=== PATIENT | male | born 1960 | race Caucasian/White ===

== ENCOUNTER 2018-03-10 09:36 | Day surgery (SDC) | payer BC ==
[2018-03-07 10:51] VITALS: BMI 25.0
[~2018-03-10 09:36] MED LIST: LACTATED RINGERS 1,000 ML IV SCH
[2018-03-10 10:08] VITALS: TEMP 96.9
[2018-03-10] MEDS ORDERED: PROPOFOL 10 MG/ML 20 ML VIAL IV ONE (10:31)
[2018-03-10] MEDS ORDERED: LIDOCAINE 1% INJ 10MG/ML (20 ML MDV) ONE (10:31)
--- NOTE | 2018-03-10 10:42 | P.GSHP ---
History of Present Illness H&P Date: 03/10/18 Chief Complaint: Colon cancer screening Patient today for colonoscopy. Last colonoscopy 6-7 years ago. He believes he had polyps at that time. No family history of colon cancer. No bowel complaints. Past Medical History Past Medical History: Eye Disorder Additional Past Medical History / Comment(s): Bilateral glaucoma. Hx broken, wrist and fingers. History of Any Multi-Drug Resistant Organisms: None Reported Additional Past Surgical History / Comment(s): Colonoscopy, bilateral cataract surgery. Past Anesthesia/Blood Transfusion Reactions: No Reported Reaction Past Psychological History: No Psychological Hx Reported Smoking Status: Current every day smoker Past Alcohol Use History: Occasional Additional Past Alcohol Use History / Comment(s): Has been smoking on and off for 30 yrs, currently 1-2 cigarettes per day. Past Drug Use History: None Reported - Past Family History Mother Family Medical History: No Reported History Medications and Allergies Home Medications Medication Instructions Recorded Confirmed Type Timolol Maleate [Timolol Maleate 1 applic BOTH EYES DAILY 03/07/18 03/10/18 History 0.5% Ophth Gel] Allergies Allergy/AdvReac Type Severity Reaction Status Date / Time No Known Allergies Allergy Verified 03/10/18 10:05 Surgical - Exam Vital Signs Temp Pulse Resp BP Pulse Ox 96.9 F L 63 16 122/67 98 03/10/18 10:06 03/10/18 10:06 03/10/18 10:06 03/10/18 10:06 03/10/18 10:06 Physical exam: General: Well-developed, well-nourished HEENT: Normocephalic, sclerae nonicteric Abdomen: Nontender, nondistended Extremities: No edema Neuro: Alert and oriented Assessment and Plan (1) Colon cancer screening Narrative/Plan: Will proceed with colonoscopy at this time. Current Visit: Yes Status: Acute Code(s): Z12.11 - ENCOUNTER FOR SCREENING FOR MALIGNANT NEOPLASM OF COLON SNOMED Code(s): 066496707
--- NOTE | 2018-03-10 10:57 | P.OP ---
Date of Procedure: 03/10/18 Procedure(s) Performed: PREOPERATIVE DIAGNOSIS: Colon cancer screening POSTOPERATIVE DIAGNOSIS: Cecal polyp, diverticulosis PROCEDURE: Colonoscopy snare polypectomy ANESTHESIA: MAC SURGEON: Bo Motley M.D. SPECIMENS: Cecal polyp ENDOSCOPIC PROCEDURE: The patient was placed on the endoscopy table in the left decubitus position. The Olympus colonoscope was inserted into the anus and passed under direct visualization to the base of the cecum. The appendiceal orifice was visualized. There is a very small polyp in the base of the cecum. This was removed using the snare with cautery technique. The remainder of the ascending transverse, descending, sigmoid and rectum appeared normal. There was mild diverticulosis noted in the sigmoid colon. Digital rectal examination was normal. The patient was taken to the recovery room in stable condition per anesthesia guidelines. RECOMMENDATIONS: Await Biopsy results. Anticipate follow-up colonoscopy 5 years
[2018-03-10 11:22] VITALS: RESP 16
[2018-03-10 11:38] VITALS: BP 106/67; PULSE 52
== END 2018-03-10 11:50 | disposition home or self-care (01) ==
LOC: ORWHC2ENDO 09:36
PROVIDERS: ATTEND Surgery
DX: Z12.11 Encounter for screening for malignant neoplasm of colon (principal); D12.0 Benign neoplasm of cecum; H40.9 Unspecified glaucoma; K57.30 Diverticulosis of large intestine without perforation or abscess without bleeding; F17.210 Nicotine dependence, cigarettes, uncomplicated; Z79.899 Other long term (current) drug therapy
CPT/HCPCS: 45385; 88305; J2001; J2704

== ENCOUNTER 2021-08-07 12:15 | Observation (INO) | payer BC ==
[2021-08-07] MEDS ORDERED: HYDROmorphone 0.5 MG/0.5 ML SYRINGE IVP STA (12:17)
[2021-08-07 12:29] LABS: Basophils # (A) 0.1 k/uL (0-0.2); Basophils % (A) 1 %; Eosinophils # (A) 0.3 k/uL (0-0.7); Eosinophils % (A) 4 %; HCT 47.7 % (39.0-53.0); HGB 15.8 gm/dL (13.0-17.5); Lymphocytes # (A) 2.3 k/uL (1.0-4.8); Lymphocytes % (A) 25 %; MCH 31.5 pg (25.0-35.0); MCHC 33.2 g/dL (31.0-37.0); MCV 94.7 fL (80.0-100.0); Mean Platelet Volume 7.4; Monocytes # (A) 0.5 k/uL (0-1.0); Monocytes % (A) 6 %; Neutrophils # (A) 5.7 k/uL (1.3-7.7); Neutrophils % (A) 63 %; Platelet Count 304 k/uL (150-450); RBC 5.04 m/uL (4.30-5.90); RDW 12.1 % (11.5-15.5)
--- NOTE | 2021-08-07 12:29 | ED ---
General Adult HPI - General Stated complaint: fall Time Seen by Provider: 08/07/21 12:17 Source: patient, EMS, RN notes reviewed, old records reviewed - History of Present Illness Initial comments: 61-year-old male presenting status post fall. 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 He states that he had burning and landed on his feet. He is complaining of pain predominantly in his right foot and ankle but does have pain in both knees and both ankles. He denies hip pain. He denies abdominal pain. Denies chest pain. No head or neck trauma. He was placed in c-collar and transported by paramedics. No daily medications, no anticoagulation. - Related Data Home Medications Medication Instructions Recorded Confirmed Ascorbic Acid [Vitamin C] 1,000 mg PO DAILY 08/07/21 08/07/21 Aspirin EC [Ecotrin Low Dose] 81 mg PO DAILY 08/07/21 08/07/21 Cholecalciferol [Vitamin D3 (25 50 mcg PO DAILY 08/07/21 08/07/21 Mcg = 1000 Iu)] Dorzolamide-Timol 2.23%/0.68% 1 drop BOTH EYES BID 08/07/21 08/07/21 [Cosopt] Latanoprost/Pf [Latanoprost 0.005% 1 drop BOTH EYES HS 08/07/21 08/07/21 Eye Drop] [place]-3 Fatty Acids/Fish Oil [Fish 1 cap PO DAILY 08/07/21 08/07/21 Oil 1,000 mg Softgel] Zinc 50 mg PO DAILY 08/07/21 08/07/21 Allergies Allergy/AdvReac Type Severity Reaction Status Date / Time No Known Allergies Allergy Verified 08/07/21 14:20 Review of Systems ROS Statement: Those systems with pertinent positive or pertinent negative responses have been documented in the HPI. ROS Other: All systems not noted in ROS Statement are negative. Past Medical History Past Medical History: Eye Disorder Additional Past Medical History / Comment(s): Bilateral glaucoma. Hx broken, wrist and fingers. History of Any Multi-Drug Resistant Organisms: None Reported Additional Past Surgical History / Comment(s): Colonoscopy, bilateral cataract surgery. Past Anesthesia/Blood Transfusion Reactions: No Reported Reaction Past Psychological History: No Psychological Hx Reported Past Alcohol Use History: Occasional Additional Past Alcohol Use History / Comment(s): Has been smoking on and off for 30 yrs, currently 1-2 cigarettes per day. Past Drug Use History: None Reported - Past Family History Mother Family Medical History: No Reported History General Exam General appearance: alert, in no apparent distress Head exam: Present: atraumatic, normocephalic Eye exam: Present: normal appearance, PERRL ENT exam: Present: normal exam Neck exam: Present: normal inspection. Absent: tenderness, meningismus Respiratory exam: Present: normal lung sounds bilaterally. Absent: respiratory distress, wheezes Cardiovascular Exam: Present: regular rate, normal rhythm GI/Abdominal exam: Present: soft. Absent: distended, tenderness, guarding, rebound Extremities exam: Present: tenderness, joint swelling, other (Deformity and ecchymosis, soft tissue swelling to the right foot and ankle. Pulses are palpable but diminished.). Absent: full ROM Back exam: Present: normal inspection, full ROM. Absent: tenderness, CVA tenderness (R), paraspinal tenderness, vertebral tenderness Neurological exam: Present: alert, oriented X3, CN II-XII intact. Absent: motor sensory deficit Psychiatric exam: Present: normal affect, normal mood Skin exam: Present: warm, dry, intact. Absent: cyanosis, diaphoretic Course Vital Signs 08/07/21 12:15 Temperature 97.6 F Pulse Rate 77 Respiratory 16 Rate Blood Pressure 130/86 O2 Sat by Pulse 98 Oximetry - Reevaluation(s) Reevaluation #1: 08/07/21 12:[address] Silver regarding level II trauma activation. Reevaluation #2: 08/07/21 [address] Oshea covering for orthopedics. Reevaluation #3: 08/07/21 15:[address] Silver, he will admit with both orthopedics and internal medicine on consult. EKG Findings - EKG Comments: EKG Findings:: EKG: Normal sinus rhythm rate of 67, MN interval 176, QRS du ration 88, QTC [address] segment elevation. Medical Decision Making - Medical Decision Making 61-year-old male status post fall from greater than 20 feet. High mechanism trauma. Patient's chief complaint is extremity pain. He is evaluated as an activated level II trauma. CT imaging is performed after initial x-rays of the chest and pelvis which are negative for traumatic injury. CT imaging negative for intracranial hemorrhage or mass effect, negative for cervical fracture or subluxation. Chest abdomen pelvis CT is negative for traumatic injury. X-rays do reveal both ankle and foot fractures. CT is ordered and this does show multiple foot fractures and trimalleolar fracture of the right ankle. Patient will be admitted for observation after this significant trauma. Orthopedics will be on consult for his orthopedic injuries. Internal medicine for medical management. - Lab Data Result diagrams: 08/07/21 12:16 08/07/21 12:16 Lab Results 08/07/21 08/07/21 08/07/21 Range/Units 12:16 12:16 12:16 WBC 9.0 (3.8-10.6) k/uL RBC 5.04 (4.30-5.90) m/uL Hgb 15.8 (13.0-17.5) gm/dL Hct 47.7 (39.0-53.0) % MCV 94.7 (80.0-100.0) fL MCH 31.5 (25.0-35.0) pg MCHC 33.2 (31.0-37.0) g/dL RDW 12.1 (11.5-15.5) % Plt Count 304 (150-450) k/uL MPV 7.4 Neutrophils % 63 % Lymphocytes % 25 % Monocytes % 6 % Eosinophils % 4 % Basophils % 1 % Neutrophils # 5.7 (1.3-7.7) k/uL Lymphocytes # 2.3 (1.0-4.8) k/uL Monocytes # 0.5 (0-1.0) k/uL Eosinophils # 0.3 (0-0.7) k/uL Basophils # 0.1 (0-0.2) k/uL PT 10.4 (9.0-12.0) sec INR 1.0 (<1.2) APTT 20.8 L (22.0-30.0) sec Sodium 140 (137-145) mmol/L Potassium 4.5 (3.5-5.1) mmol/L Chloride 107 (98-107) mmol/L Carbon Dioxide 23 (22-30) mmol/L Anion Gap 10 mmol/L BUN 18 (9-20) mg/dL Creatinine 0.98 (0.66-1.25) mg/dL Est GFR (CKD-EPI)AfAm >90 (>60 ml/min/1.73 sqM) Est GFR (CKD-EPI)NonAf 83 (>60 ml/min/1.73 sqM) Glucose 102 H (74-99) mg/dL Calcium 9.1 (8.4-10.2) mg/dL Total Bilirubin 1.3 (0.2-1.3) mg/dL AST 22 (17-59) U/L ALT 14 (4-49) U/L Alkaline Phosphatase 66 (38-126) U/L Troponin I (0.000-0.034) ng/mL Total Protein 7.1 (6.3-8.2) g/dL Albumin 4.0 (3.5-5.0) g/dL Serum Alcohol <10 mg/dL Blood Type Blood Type Confirm Blood Type Recheck Bld Type Recheck Status Antibody Screen Spec Expiration Date 08/07/21 08/07/21 08/07/21 Range/Units 12:16 12:16 13:04 WBC (3.8-10.6) k/uL RBC (4.30-5.90) m/uL Hgb (13.0-17.5) gm/dL Hct (39.0-53.0) % MCV (80.0-100.0) fL MCH (25.0-35.0) pg MCHC (31.0-37.0) g/dL RDW (11.5-15.5) % Plt Count (150-450) k/uL MPV Neutrophils % % Lymphocytes % % Monocytes % % Eosinophils % % Basophils % % Neutrophils # (1.3-7.7) k/uL Lymphocytes # (1.0-4.8) k/uL Monocytes # (0-1.0) k/uL Eosinophils # (0-0.7) k/uL Basophils # (0-0.2) k/uL PT (9.0-12.0) sec INR (<1.2) APTT (22.0-30.0) sec Sodium (137-145) mmol/L Potassium (3.5-5.1) mmol/L Chloride (98-107) mmol/L Carbon Dioxide (22-30) mmol/L Anion Gap mmol/L BUN (9-20) mg/dL Creatinine (0.66-1.25) mg/dL Est GFR (CKD-EPI)AfAm (>60 ml/min/1.73 sqM) Est GFR (CKD-EPI)NonAf (>60 ml/min/1.73 sqM) Glucose (74-99) mg/dL Calcium (8.4-10.2) mg/dL Total Bilirubin (0.2-1.3) mg/dL AST (17-59) U/L ALT (4-49) U/L Alkaline Phosphatase (38-126) U/L Troponin I <0.012 (0.000-0.034) ng/mL Total Protein (6.3-8.2) g/dL Albumin (3.5-5.0) g/dL Serum Alcohol mg/dL Blood Type A Negative Blood Type Confirm A Negative Blood Type Recheck No Previous Record Bld Type Recheck Status CABO Indicated Antibody Screen NEGATIVE Spec Expiration Date 08/10/2021 - 2315 Disposition Clinical Impression: Fall, Trimalleolar fracture of ankle, closed, Lisfranc fracture, Metatarsal fracture Disposition: ADMITTED IP TO THIS [facility] Condition: Stable Is patient prescribed a controlled substance at d/c from ED?: No Referrals: None,Stated [REFERRING] - 1-2 days Decision to Admit Reason: Admit from EC Decision Date: 08/07/21 Decision Time: 15:27
--- NOTE | 2021-08-07 12:35 | XR ---
EXAMINATION TYPE: XR chest 1V portable DATE OF EXAM: 08/07/2021 Comparison: 03/05/2014 Clinical History: 61-year-old male trauma, fall from roof today, pain Findings: Heart and lungs are normal in size. Some interstitial prominence upper and mid lungs without consolid ation, pneumothorax, or pleural effusion seen. Impression: Some interstitial prominence in the upper and mid lungs may be technical. No pneumothorax or pleural effusion. The interstitium can be further assessed on the patient's scheduled CT.
--- NOTE | 2021-08-07 12:38 | XR ---
EXAMINATION TYPE: XR pelvis AP view DATE OF EXAM: 08/07/2021 COMPARISON: NONE HISTORY: 61 year-old male trauma, pain after fall from roof today FINDINGS: Hips appear symmetric and intact. External rotation of the right hip limiting assessment of the right femoral neck. No displaced fracture is seen. SI joints appear symmetric and intact as does the pubic symphysis. IMPRESSION: Limited assessment of the right femoral neck due to patient positioning. No displaced fracture seen.
[2021-08-07 12:41] LABS: ALT 14 U/L (4-49); AST 22 U/L (17-59); African American GFR (CKD) >90 (>60 ml/min/1.73 sqM); Alcohol <10 mg/dL; Alkaline Phosphatase 66 U/L (38-126); Anion Gap 10 mmol/L; Blood Urea Nitrogen 18 mg/dL (9-20); Calcium 9.1 mg/dL (8.4-10.2); Carbon Dioxide 23 mmol/L (22-30); Chloride 107 mmol/L (98-107); Glucose 102 mg/dL (74-99); Non-African American GFR(CKD) 83 (>60 ml/min/1.73 sqM); Potassium 4.5 mmol/L (3.5-5.1); Sodium 140 mmol/L (137-145); Total Bilirubin 1.3 mg/dL (0.2-1.3); Total Protein 7.1 g/dL (6.3-8.2)
[2021-08-07 12:56] LABS: Prothrombin Time 10.4 sec (9.0-12.0)
--- NOTE | 2021-08-07 13:11 | CT ---
EXAMINATION TYPE: CT brain corrina allen DATE OF EXAM: 08/07/2021 COMPARISON: None HISTORY: Fall, Trauma CT DLP: 1668.[address] of the brain was performed. The ventricles, basal cisterns and sulci overlying the cerebral convexities demonstrate mild enlargem ent. There is no evidence for intracranial hemorrhage or sulcal effacement. There is decreased attenuatio n about the periventricular white matter and deep white matter of both cerebral hemispheres, compatib le with chronic small vessel ischemia. No mass effects are seen. If symptoms persist consider MRI. Osseous calvarium is intact. IMPRESSION: 1. Age related atrophic and chronic small vessel ischemic change without acute intracranial process seen at this time. CT Cervical Spine: Unenhanced CT of the cervical spine was performed with bone and soft tissue window settings submitted . Coronal and sagittal reconstruction is obtained. There is normal alignment and prevertebral soft tissues. No evidence for acute cervical fracture . Scattered degenerative disc disease and spondylosis. Biapical scarring. Incidental note is made of T1 hemangioma. IMPRESSION: 1. No evidence for acute fracture or subluxation of the cervical spine.
--- NOTE | 2021-08-07 13:16 | CT ---
EXAMINATION TYPE: CT ChestAbdPelvis w con DATE OF EXAM: 08/07/2021 COMPARISON: none HISTORY: Fall, Trauma CT DLP: 1155.2 mGycm CONTRAST: Contrast enhanced Trauma CT of the Chest, Abdomen and Pelvis is performed with IV Contrast, patient i njected with 100 mL of Isovue 300. Chest: LUNGS: There is no evidence for pneumothorax. The lungs are clear and free of focal contusion or ate lectasis. No pleural effusion MEDIASTINUM: Thoracic aorta is of normal caliber without CT evidence to suggest traumatic induced ao rtic injury. No mediastinal fluid or blood. No pericardial fluid or cardia abnormality. HILAR STRUCTURES: No evidence for mass. No hilar adenopathy is appreciated. OTHER: No significant abnormality. OSSEOUS: No displaced osseous fractures identified. CT ABDOMEN AND PELVIS FINDINGS: LIVER/GB: No focal laceration, contusion or subcapsular hemorrhage. No calcified gallstones. No s pace occupying hepatic lesion. Biliary tree is of normal caliber. PANCREAS: No evidence for transection. No inflammation. No distinct mass. SPLEEN: No focal laceration, contusion or subcapsular hemorrhage. ADRENALS: No hemorrhage. No nodule. No thickening. KIDNEYS/BLADDER: No focal laceration, contusion or subcapsular hemorrhage. No hydronephrosis. No n ephrolithiasis. No distinct renal mass. BOWEL: Bowel is intact. No evidence for pneumoperitoneum. GENITAL ORGANS: No gross abnormality. LYMPH NODES: No greater than 1cm abdominal or pelvic lymph nodes are appreciated. AORTA: No traumatic aortic injury visualized. OSSEOUS STRUCTURES: No displaced fracture seen. OTHER: No evidence for hemoperitoneum. IMPRESSION: 1. No evidence for traumatic injury to the chest. 2. No evidence for traumatic injury to the abdomen or pelvis.
[2021-08-07 13:18] LABS: Partial Thromboplastin Time 20.8 sec (22.0-30.0)
--- NOTE | 2021-08-07 13:39 | XR ---
EXAMINATION TYPE: XR knee complete bilateral DATE OF EXAM: 08/07/2021 COMPARISON: NONE HISTORY: Pain TECHNIQUE: Three views of each knee are submitted. FINDINGS: Mild hypertrophic change of the patellofemoral joint.. Osseous structures are intact. No acute frac ture seen. IMPRESSION: 1. No acute fracture or dislocation.
--- NOTE | 2021-08-07 13:42 | XR ---
EXAMINATION TYPE: XR foot complete RT DATE OF EXAM: 08/07/2021 COMPARISON: NONE HISTORY: Pain TECHNIQUE: Three views are submitted. FINDINGS: There is be fractures involving the distal tibia and fibula with displacement. There also appears to be widening of the first and tarsal metatarsal junction. Deformity at the base of the second metatars al could not exclude fracture recommend follow-up CT scan. There is arthropathy of the first MTP and a fracture appearing involving the head and fifth metatarsal. IMPRESSION: 1. No fractures involving the head of the fifth metatarsal, distal tibia and fibula with displacement . 2. There is widening of the first tarsal metatarsal junction and the distance between the first and s econd metatarsals. Slight osseous irregularity at the level of the base of the second metatarsal. Rec ommend CT of the foot to assess for Lisfranc fracture dislocation.
--- NOTE | 2021-08-07 13:48 | XR ---
EXAMINATION TYPE: XR ankle complete bilateral DATE OF EXAM: 08/07/2021 COMPARISON: NONE HISTORY: Pain FINDINGS: Three views of the bilateral ankle are obtained. Left ankle: Ankle mortise is preserved. Visualized osseous structures are grossly intact. With no acu te fracture. Right ankle: There is soft tissue edema displaced fractures involving the medial and lateral malleolu s. Slight medial subluxation the tibia relative to the talus not excluded. Posterior margin of the ti diamond grossly intact. IMPRESSION: 1. Acute displaced fractures right medial and lateral malleolus.
--- NOTE | 2021-08-07 14:50 | CT ---
EXAMINATION TYPE: CT lower extremity RT wo con DATE OF EXAM: 08/07/2021 COMPARISON: None HISTORY: Fall. Right ankle/foot pain. CT DLP: 394.7 mGycm Automated exposure control for dose reduction was used. Unenhanced CT of the right ankle and foot was performed with bone and soft tissue window settings submitted. FINDINGS: There is mildly comminuted fracture involving the medial malleolus at the level of the ankle mortise. Displacement is identified measuring 8 mm. There is also fracture involving the medial malleolus wit h displacement of 3.2 mm. Posterior malleolar fracture noted displacement of 3.8 mm. Ankle mortise i s intact. Soft tissue swelling noted. There is displaced fracture involving the tarsal cuboid measuring 3.9 mm displacement. There is fract ure involving the head/neck of the fifth metatarsal with minimal displacement noted. There is chip fr acture involving the third cuneiform the metatarsal joint tiny chip fracture involving the lateral as pect of the base of the second metatarsal. Comminuted and Displaced fracture base of the second metat arsal. Widening of the first and second metatarsal interspace measuring 6.6 mm. Findings are compatib le with Lisfranc fracture dislocation. IMPRESSION: 1. Trimalleolar fracture about the ankle. 2. Lisfranc fracture dislocation at the first and second metatarsal interspace. Comminuted fracture a t the base of the second metatarsal. 3. Cuboid fracture. 4. Fracture of the fifth metatarsal head/neck.
[2021-08-07] MEDS ORDERED: KETOROLAC 15 MG/ML 1 ML VIAL IVP STA (14:57)
[2021-08-07] MEDS ORDERED: NALOXONE 0.4 MG/ML 1 ML VIAL IV PRN (15:22)
[2021-08-07] MEDS ORDERED: ACETAMINOPHEN TAB 325 MG TAB PO PRN (15:22)
[2021-08-07] MEDS ORDERED: ONDANSETRON 4 MG/2 ML VIAL IVP PRN (15:22)
[2021-08-07] MEDS: HYDROmorphone 1 MG/ML 1 ML SYRINGE IVP PRN ×2 (16:59→20:43)
[2021-08-07] MEDS: KETOROLAC 30 MG/ML 1 ML VIAL IVP PRN ×2 (17:58→23:36)
[2021-08-07] MEDS: HYDROmorphone 0.5 MG/0.5 ML SYRINGE IVP PRN ×2 (18:00→23:39)
[2021-08-08] MEDS: HYDROmorphone 1 MG/ML 1 ML SYRINGE IVP PRN ×2 (02:02→08:38)
--- NOTE | 2021-08-08 09:03 | P.CNOR ---
History of Present Illness - [facility] Consult date: 08/08/21 History of present illness: The patient is a very pleasant 61-year-old male who is relatively healthy other than smoking 1-2 cigarettes a day who sustained a high level fall off a roof yesterday. 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 He lost his balance and fell almost 20 feet. He describes landing in a crouched position. He had immediate pain in his right ankle and foot and was unable to walk. He came to the emergency department where x-rays showed a right trimalleolar ankle fracture, a displaced right Lisfranc variant injury and a right cuboid fracture. Due to the mechanism of injury he was admitted overnight for observation. Orthopedics was consulted. This morning his complaining of isolated pain in his right foot and ankle. Overall he is comfortable. Past Medical History Past Medical History: Eye Disorder Additional Past Medical History / Comment(s): Bilateral glaucoma. Hx broken, wrist and fingers. History of Any Multi-Drug Resistant Organisms: None Reported Additional Past Surgical History / Comment(s): Colonoscopy, bilateral cataract surgery. Past Anesthesia/Blood Transfusion Reactions: No Reported Reaction Past Psychological History: No Psychological Hx Reported Smoking Status: Current some day smoker Past Alcohol Use History: Occasional Additional Past Alcohol Use History / Comment(s): Has been smoking on and off for 30 yrs, currently 1-2 cigarettes per day. Past Drug Use History: None Reported - Past Family History Mother Family Medical History: No Reported History Medications and Allergies Home Medications Medication Instructions Recorded Confirmed Type Ascorbic Acid [Vitamin C] 1,000 mg PO DAILY 08/07/21 08/07/21 History Aspirin EC [Ecotrin Low Dose] 81 mg PO DAILY 08/07/21 08/07/21 History Cholecalciferol [Vitamin D3 (25 50 mcg PO DAILY 08/07/21 08/07/21 History Mcg = 1000 Iu)] Dorzolamide-Timol 2.23%/0.68% 1 drop BOTH EYES BID 08/07/21 08/07/21 History [Cosopt] Latanoprost/Pf [Latanoprost 0.005% 1 drop BOTH EYES HS 08/07/21 08/07/21 History Eye Drop] [place]-3 Fatty Acids/Fish Oil [Fish 1 cap PO DAILY 08/07/21 08/07/21 History Oil 1,000 mg Softgel] Zinc 50 mg PO DAILY 08/07/21 08/07/21 History Allergies Allergy/AdvReac Type Severity Reaction Status Date / Time No Known Allergies Allergy Verified 08/07/21 14:20 Physical Examination The patient is sitting up at bedside eating breakfast. He appears comfortable. He is alert and oriented. His head is normocephalic and atraumatic. His cervical spine is nontender. He demonstrates nonlabored breathing with symmetric chest expansion. His abdomen is nonobese. He is nontender throughout the upper extremities and has no obvious deformities. The left leg is completely nontender without deformity. Right lower extremity: The focused examination of the right lower extremity was conducted. On inspection there is a intact short leg splint over the ankle. There is no tenderness over the hip or knee. The tips of the toes are diffusely swollen there is ecchymosis visualized under the splint. There is no pain with passive range of motion of the toes. The patient is able to actively plantarflex and dorsiflex his toes. The tips of the toes are warm and well- perfused brisk capillary refill. Sensation is intact to light touch throughout his toes. Results X-rays and computed tomography scan of the ankle show a minimally displaced trimalleolar ankle fracture. X-rays and computed tomography scan of the foot show a Lisfranc variant injury with displacement of the second metatarsal base out of the keystone and widening of the 1-2 intermetatarsal space. There is also a cuboid fracture and a fifth metatarsal neck fracture. - Labs Labs: Abnormal Lab Results - Last 24 Hours (Table) 08/07/21 08/07/21 Range/Units 12:16 12:16 APTT 20.8 L (22.0-30.0) sec Glucose 102 H (74-99) mg/dL H & H 08/07/21 Range/Units 12:16 Hgb 15.8 (13.0-17.5) gm/dL Hct 47.7 (39.0-53.0) % Coagulation 08/07/21 Range/Units 12:16 INR 1.0 (<1.2) Result Diagrams: 08/07/21 12:16 08/07/21 12:16 Assessment and Plan Assessment: 61-year-old male with a medical history significant for smoking 1-2 cigarettes a day who sustained a 20 foot fall onto his right lower extremity resulting in a closed right trimalleolar ankle fracture, multiple foot fractures, and an unstable Lisfranc injury. Plan: A long discussion with Mr. Garibay this morning about all of his injuries. We discussed that they will need operative fixation once the soft tissue swelling subside which generally takes 10-14 days. He was encouraged to elevate and ice the right leg to help with resolution of soft tissue swelling. He is to remain strictly nonweightbearing on his right leg. I encouraged crutch or knee scooter use. He will need to follow-up in my office this coming Tuesday which will be 1 week from his injury. The patient is cleared for discharge home from an orthopedic standpoint in regards to his extremity injury. I will defer overall readiness for discharge to the trauma service given his mechanism of injury. Thank you very much for the consultation.
[2021-08-08 09:07] VITALS: BP 133/70; PULSE 71; RESP 16; TEMP 99.2
[2021-08-08] MEDS: HYDROmorphone 0.5 MG/0.5 ML SYRINGE IVP PRN (11:31)
--- NOTE | 2021-08-08 19:22 | CONS ---
CONSULTATION I am covering for Dr. Degroot. REASON FOR CONSULTATION: Advice regarding glaucoma and other medical issues requested by Surgery. HISTORY OF PRESENT ILLNESS: This 61-year-old gentleman with a past history of bilateral glaucoma, history of fracture, history of colonoscopy, bilateral cataract surgery, being followed by Dr. Degroot in the outpatient apparently slipped and fell. The patient suffered a right ankle fracture and Dr. Oshea saw the patient and recommended outpatient evaluation. There is no history of any fever or rigors. No history of headache, loss of conscious. Basic labs are normal except glucose 102. COVID-19 was negative. There is no history of fever, rigors, chills at this time. No history of any unconsciousness or syncope. PAST MEDICAL HISTORY: History eye disorder, history of bilateral glaucoma, history of smoking, colonoscopy. HOME MEDICATIONS: Prior to admission noted. ALLERGIES: None. FAMILY HISTORY: No history of heart disease or strokes in the family. SOCIAL HISTORY: History of smoking occasionally. REVIEW OF SYSTEMS: ENT No history of diminished hearing or vision. CARDIOVASCULAR No angina or palpitations. RESPIRATORY No cough, no hemoptysis. GI No nausea, vomiting, or diarrhea. No dysuria or hematuria. NERVOUS No numbness or weakness. ALLERGY/IMMUNOLOGY No asthma or hayfever. MUSCULOSKELETAL As mentioned earlier. HEMATOLOGY/ONCOLOGY Negative. ENDOCRINE No history of diabetes or hypothyroidism. CONSTITUTIONAL As mentioned earlier. DERMATOLOGY Negative. RHEUMATOLOGY Negative, PSYCHIATRY As mentioned earlier. PHYSICAL EXAMINATION: Alert and oriented x3. Pulse 71, blood pressure 133/70, respirations 16, temperature 99.2, pulse ox 94% on room air. HEENT: Conjunctivae normal. Oral mucosa moist. NECK: No jugular venous distention. No lymph node enlargement. CARDIOVASCULAR: S1, S2, muffled. No S3, no S4, RESPIRATORY: Diminished breath sounds at the bases. A few scattered rhonchi. ABDOMEN: Soft, nontender. LEGS: Status post right ankle fracture. NERVOUS SYSTEM: Higher functions mentioned earlier. Moves all four limbs. No focal motor or sensory deficits. LYMPHATICS: No lymph node in neck or axilla. SKIN: No rash. JOINTS: As mentioned earlier. LABS: CBC within normal limits. APTT 20.8. Sodium 140, potassium 4.5. ASSESSMENT: 1. Fall and right ankle fracture. 2. History of bilateral glaucoma. 3. History of colonoscopy. 4. History of cataract surgery. 5. History of nicotine dependence. 6. FULL CODE. RECOMMENDATION: In this 61-year-old gentleman who presented after fracture, at this time patient is medically stable. Orthopedics is planning surgery. Will plan discharge and follow up in the outpatient setting. I would recommend continue the current medications and follow closely with Dr. Degroot. The patient was started on aspirin and recommended close followup with Dr. Degroot and as well as Dr. Oshea as recommended to follow. Thank you for letting us participate in the care of this patient. MMODL / IJN: [id number] /
--- NOTE | 2021-08-09 12:30 | P.GSHP ---
History of Present Illness H&P Date: 08/07/21 Chief Complaint: 20. Follow This is a 61-year-old male admitted through the emergency room. Patient apparently was dory when he fell off his ladder. The patient had an a pproximate 24 fall. Patient states he landed on his feet. He had complained of right foot and ankle pain. He is worked up emergency room and found have fractures of his right foot and ankle. Past Medical History Past Medical History: Eye Disorder Additional Past Medical History / Comment(s): Bilateral glaucoma. Hx broken, wrist and fingers. History of Any Multi-Drug Resistant Organisms: None Reported Additional Past Surgical History / Comment(s): Colonoscopy, bilateral cataract surgery. Past Anesthesia/Blood Transfusion Reactions: No Reported Reaction Past Psychological History: No Psychological Hx Reported Smoking Status: Current some day smoker Past Alcohol Use History: Occasional Additional Past Alcohol Use History / Comment(s): Has been smoking on and off for 30 yrs, currently 1-2 cigarettes per day. Past Drug Use History: None Reported - Past Family History Mother Family Medical History: No Reported History Medications and Allergies Home Medications Medication Instructions Recorded Confirmed Type Ascorbic Acid [Vitamin C] 1,000 mg PO DAILY 08/07/21 08/07/21 History Aspirin EC [Ecotrin Low Dose] 81 mg PO DAILY 08/07/21 08/07/21 History Cholecalciferol [Vitamin D3 (25 50 mcg PO DAILY 08/07/21 08/07/21 History Mcg = 1000 Iu)] Dorzolamide-Timol 2.23%/0.68% 1 drop BOTH EYES BID 08/07/21 08/07/21 History [Cosopt] Latanoprost/Pf [Latanoprost 0.005% 1 drop BOTH EYES HS 08/07/21 08/07/21 History Eye Drop] [place]-3 Fatty Acids/Fish Oil [Fish 1 cap PO DAILY 08/07/21 08/07/21 History Oil 1,000 mg Softgel] Zinc 50 mg PO DAILY 08/07/21 08/07/21 History Aspirin [Adult Low Dose Aspirin EC] 81 mg PO DAILY #30 tab 08/08/21 Rx Docusate [Colace] 100 mg PO BID #60 capsule 08/08/21 Rx HYDROcodone/APAP 7.5-325MG [[place] 1 - 2 each PO Q6HR PRN #42 tab 08/08/21 Rx 7.5-325] Allergies Allergy/AdvReac Type Severity Reaction Status Date / Time No Known Allergies Allergy Verified 08/07/21 14:20 Surgical - Exam Vital Signs Temp Pulse Resp BP Pulse Ox 97.6 F 77 16 130/86 98 08/07/21 12:15 08/07/21 12:15 08/07/21 12:15 08/07/21 12:15 08/07/21 12:15 - General well developed, well nourished, moderate distress - Eyes PERRL - ENT normal pinna - Neck no masses - Respiratory normal expansion - Cardiovascular Rhythm: regular - Abdomen Abdomen: soft, non tender - Integumentary no rash - Neurologic normal coordination, normal sensation - Musculoskeletal Obvious swelling of right foot and ankle Results - Labs 08/07/21 12:16 08/07/21 12:16 - Imaging Additional studies: Trimalleolar fracture of the right ankle, Lisfranc fracture of the foot, cuboid fracture, fifth metatarsal head neck fracture Computed tomography scan chest and pelvis is normal. no neck injury Assessment and Plan Assessment: 20 foot fall with multiple right foot and ankle fractures. Patient be evaluated by orthopedics.
--- NOTE | 2021-08-09 12:32 | P.PN ---
Progress Note - Text Progress Note Date: 08/09/21 Patient states he feels well other than some right ankle and foot pain. He wishes to go home today. He's been evaluated orthopedics. On exam vital signs are stable. Abdomen soft. There is no tenderness. Patient has minimal body pain. Patient will be discharged home after orthopedic evaluation. He'll follow-up with orthopedics for outpatient fixation of his fractures
--- NOTE | 2021-08-09 12:32 | P.DS ---
Providers Date of admission: 08/07/21 15:22 Expected date of discharge: 08/08/21 Attending physician: Mil Silver Consults: 08/07/21 15:23 Consult Physician Routine Consulting Provider: Armando Oshea Consult Reason/Comments: Right foot and ankle fracture Do you want consulting provider notified?: Already Contacted Consult Physician Routine Consulting Provider: Tristan Bell Consult Reason/Comments: Medical management Do you want consulting provider notified?: Yes Primary care physician: Sujit Degroot [facility] Course: This is a 61-year-old male who was admitted after atraumatic fall. Patient was worked up by orthopedic. And had multiple fractures of his right foot and ankle. Please see hospital chart for details Patient Condition at Discharge: Good Plan - Discharge Summary Discharge Rx Participant: No New Discharge Prescriptions: New Aspirin [Adult Low Dose Aspirin EC] 81 mg PO DAILY #30 tab HYDROcodone/APAP 7.5-325MG [[place] 7.5-325] 1 - 2 each PO Q6HR PRN #42 tab PRN Reason: Pain Docusate [Colace] 100 mg PO BID #60 capsule No Action Latanoprost/Pf [Latanoprost 0.005% Eye Drop] 1 drop BOTH EYES HS Dorzolamide-Timol 2.23%/0.68% [Cosopt] 1 drop BOTH EYES BID Cholecalciferol [Vitamin D3 (25 Mcg = 1000 Iu)] 50 mcg PO DAILY Aspirin EC [Ecotrin Low Dose] 81 mg PO DAILY Zinc 50 mg PO DAILY [place]-3 Fatty Acids/Fish Oil [Fish Oil 1,000 mg Softgel] 1 cap PO DAILY Ascorbic Acid [Vitamin C] 1,000 mg PO DAILY Discharge Medication List Ascorbic Acid [Vitamin C] 1,000 mg PO DAILY 08/07/21 [History] Aspirin EC [Ecotrin Low Dose] 81 mg PO DAILY 08/07/21 [History] Cholecalciferol [Vitamin D3 (25 Mcg = 1000 Iu)] 50 mcg PO DAILY 08/07/21 [History] Dorzolamide-Timol 2.23%/0.68% [Cosopt] 1 drop BOTH EYES BID 08/07/21 [History] Latanoprost/Pf [Latanoprost 0.005% Eye Drop] 1 drop BOTH EYES HS 08/07/21 [History] [place]-3 Fatty Acids/Fish Oil [Fish Oil 1,000 mg Softgel] 1 cap PO DAILY 08/07/21 [History] Zinc 50 mg PO DAILY 08/07/21 [History] Aspirin [Adult Low Dose Aspirin EC] 81 mg PO DAILY #30 tab 08/08/21 [Rx] Docusate [Colace] 100 mg PO BID #60 capsule 08/08/21 [Rx] HYDROcodone/APAP 7.5-325MG [[place] 7.5-325] 1 - 2 each PO Q6HR PRN #42 tab 08/08/21 [Rx] Follow up Appointment(s)/Referral(s): None,Stated [REFERRING] - 1-2 days Armando Oshea MD [Medical Doctor] - 08/14/21 Patient Instructions/Handouts: Ankle Fracture (DC), Foot Fracture in Adults (DC), Fall Prevention (DC) Activity/Diet/Wound Care/Special Instructions: RIGHT LE: Strict non-weight bearing. Leave splint intact. Use crutches or knee scooter to ambulate. Ice and elevate right leg to help with soft tissue swelling resolution.
== END 2021-08-08 12:36 | disposition home or self-care (01) ==
LOC: EC 12:15 → INTOOBSV 15:22 → 5NMEDONC 15:22 → OBSVTOIN 15:22 → 5NMEDONC 18:03 → 6NMEDSUR 22:10 → UNDODISOB 08-08 12:36 → UNDODISIN 08-08 12:36
PROVIDERS: ADMIT Surgery; ATTEND Surgery
DX: S92.321A Displaced fracture of second metatarsal bone, right foot, initial encounter for closed fracture (principal); S92.351A Displaced fracture of fifth metatarsal bone, right foot, initial encounter for closed fracture; S92.211A Displaced fracture of cuboid bone of right foot, initial encounter for closed fracture; S92.311A Displaced fracture of first metatarsal bone, right foot, initial encounter for closed fracture; S82.851A Displaced trimalleolar fracture of right lower leg, initial encounter for closed fracture; H40.9 Unspecified glaucoma; F17.210 Nicotine dependence, cigarettes, uncomplicated; Z20.822 Contact with and (suspected) exposure to COVID-19; W13.2XXA Fall from, out of or through roof, initial encounter; Z79.82 Long term (current) use of aspirin; Z79.899 Other long term (current) drug therapy
CPT/HCPCS: 96376 ×3; 96374; 96375; 99285; 36415; 93005; 86900; 86901; 80053; 84484; 85025; 85610; 85730; 86850; 80320; 87635; 73562; 73610; 72170; 73630; 71045; 73700; 72125; 70450; 71260; 74177; G0378 ×3; J1885 ×2; J1170 ×4; Q9967

== ENCOUNTER 2021-08-26 11:38 | Day surgery (SDC) | payer BC ==
[2021-08-20 17:02] VITALS: BMI 25.0
[2021-08-26] MEDS ORDERED: LIDOCAINE 1% (10MG/ML) FOR IV START INTRADERMA PRN (12:07)
[2021-08-26] MEDS ORDERED: LACTATED RINGERS 1,000 ML IV SCH (12:07)
[2021-08-26] MEDS ORDERED: DEXAMETHASONE SOD PHOSPHATE 4 MG/ML 1 ML VIAL IV ONE (12:07)
[2021-08-26] MEDS ORDERED: HYDROmorphone 0.5 MG/0.5 ML SYRINGE IVP PRN (12:07)
[2021-08-26] MEDS ORDERED: SCOPOLAMINE 1.5MG/72HR PATCH TRANSDERM ONE (12:07)
[2021-08-26] MEDS ORDERED: ONDANSETRON 4 MG/2 ML VIAL IVP ONE ×2 (12:07→12:40)
[2021-08-26] MEDS ORDERED: DEXAMETHASONE SOD PHOSPHATE 4 MG/ML 1 ML VIAL IVP ONE (12:40)
[2021-08-26] MEDS ORDERED: MIDAZOLAM 2 MG/2 ML VIAL IVP ONE (12:46)
[2021-08-26] MEDS ORDERED: HYDROmorphone (PF) 1 MG/ML ONE (13:35)
[2021-08-26] MEDS ORDERED: PROPOFOL 10 MG/ML 20 ML VIAL IV ONE (13:35)
[2021-08-26] MEDS ORDERED: fentaNYL (PF) 50 MCG/ML 2 ML AMP ONE (13:35)
[2021-08-26] MEDS ORDERED: MIDAZOLAM 2 MG/2 ML VIAL ONE (13:35)
[2021-08-26] MEDS ORDERED: ROPIVACAINE 5 MG/ML 30 ML VIAL ONE (13:35)
[2021-08-26] MEDS ORDERED: PHENYLEPHRINE-0.9% NACL SYG 1,000 MCG/10 ML SYRINGE ONE (13:35)
[2021-08-26] MEDS ORDERED: DEXAMETHASONE SOD PHOSPHATE 4 MG/ML 1 ML VIAL ONE (13:35)
[2021-08-26] MEDS ORDERED: SUCCINYLCHOLINE CHLORIDE 100 MG/5 ML SYR IV ONE (13:35)
[2021-08-26] MEDS ORDERED: LIDOCAINE 1% INJ 10MG/ML (20 ML MDV) ONE (13:35)
--- NOTE | 2021-08-26 14:40 | P.ANPRN ---
Procedure Note - Anesthesia - Nerve Block Performed Right Adductor Canal Single Time Out Performed: Yes Date of Procedure: 08/26/21 Procedure Start Time: 12:45 Procedure Stop Time: 12:55 Location of Patient: PreOp Indication: Acute Post-Operative Pain, Requested by Surgeon Sedation Type: Sedate with meaningful contact maintained Preparation: Sterile Prep, Sterile Dressing Position: Supine Catheter: None Needle Types: Facet Needle Gauge: 20 Ultrasound used to visualize needle placement: Yes Ultrasound used to observe medication spread: Yes Injectate: 0.5% Ropivacaine (see comment for volume) (18 ml + decadron 4 mg) Blood Aspirated: No Pain Paresthesia on Injection Noted: No Resistance on Injection: Normal Image Stored and Saved: Yes Events: Uneventful and Well Tolerated Right Popliteal Single Date of Procedure: 08/26/21 Procedure Start Time: 12:55 Procedure Stop Time: 13:05 Location of Patient: PreOp Indication: Acute Post-Operative Pain, Requested by Surgeon Sedation Type: Sedate with meaningful contact maintained Preparation: Sterile Prep, Sterile Dressing Position: Left Lateral Catheter: None Needle Types: Facet Needle Gauge: 20 Ultrasound used to visualize needle placement: Yes Ultrasound used to observe medication spread: Yes Injectate: 0.5% Ropivacaine (see comment for volume) (18 ml + decadron 4 mg) Blood Aspirated: No Pain Paresthesia on Injection Noted: No Resistance on Injection: Normal Image Stored and Saved: Yes Events: Uneventful and Well Tolerated
[2021-08-26] MEDS ORDERED: LACTATED RINGERS 1,000 ML IV ONE (14:54)
[2021-08-26 16:19] VITALS: TEMP 97.2
--- NOTE | 2021-08-26 16:28 | P.OP ---
Date of Procedure: 08/26/21 Preoperative Diagnosis: 1. Displaced trimalleolar fracture right ankle 2. Tarsometatarsal joint dislocation right foot Postoperative Diagnosis: 1. Same 2. Same Procedure(s) Performed: 1. Open reduction with internal fixation trimalleolar fracture right ankle 2. Open reduction with internal fixation right tarsometatarsal joint dislocation Implants: Arthrex precontoured lateral malleolar plate with associated screws, 4.0 c annulated screws, 4.0 headless fully threaded cannulated screw, Lisfranc reduction plate with screws Anesthesia: TAINA Surgeon: Boyd Hutchison Estimated Blood Loss (ml): 20 Pathology: none sent Condition: stable Disposition: PACU Description of Procedure: Prior to the patient being brought to the operative room anesthesia administered a nerve block on the right lower extremity using ultrasonic guidance and having the patient under mild sedation. The consent was checked for the correct procedure and correct laterality. Patient received 2 g of Kefzol through IV preoperatively. Then the patient was taken to the operating room and placed on table in the supine position. Timeout was again done to confirm correct patient identifiers, correct site of surgery, and correct procedures. When all staff in the room in agreement the patient was induced, intubated and placed under general anesthesia. A well-padded tourniquet was placed on the right thigh and a bump underneath the right hip to internally rotate the right leg. The right leg was then prepped and draped in usual manner. The leg was exsanguinated with an Esmarch bandage, the knee slightly flexed and the tourniquet inflated to 250 mmHg Attention was first directed over the lateral malleolus where an incision was made along the midline. It was deepened directly down through the saphenous layer to the bone. The periosteum as well as the rest of the soft tissue was reflected and one flap off the lateral malleolus. Osteotomes were used to distract the fracture and all the interposing soft tissue and hematoma were removed. The bone was lightly debrided with a curette to freshen the bone ends for improved healing. Bone reduction forceps were used to rotate the fracture into appropriate position and out to proper length. With the bone clamp held in place fluoroscopy was used to check the overall alignment on AP oblique and lateral views. Once alignment was appropriate a compression screw was placed from anterior to posterior perpendicular to the fracture site to provide interfragmentary compression. Fluoroscopy again confirmed proper position of the screw both the AP and lateral views. Then an Arthrex precontoured lateral malleolar fracture plate was positioned over the lateral malleolus. Fluoroscopy was used to adjust position. Once position was acceptable it was temporarily fixated. 35 nonlocking screw was placed through one of the proximal holes to bring the plate better contact with the fibula. Then (2) 3.5 mm locking screws were placed through the proximal portion of the plate on either side of the cortical screw. Distally 3.0 cancellous screws were placed through the plate. All holes were drilled under direct fluoroscopic visualization so that the lateral gutter was not penetrated. Once all screws were placed fluoroscopy was used to check position and make sure none into the joint. Final fluoroscopic imaging the fracture showed anatomic reduction of the lateral malleolar fracture with proper placement of all hardware. The wound is thoroughly irrigated with antibiotic saline. Deep closure done with 0 Vicryl. Skin closure done with stainless mary. Then attention was directed to the medial aspect of the ankle. Fluoroscopy was used to make landmarks on the medial side of the ankle for entry points for the percutaneous screws. Bone reduction clamp was used to clamp the medial malleolar fracture into anatomic reduction. Fluoroscopy confirmed the proper positioning. Guidewires for 4.0 cannulated screws were placed at the tip of the medial malleolus and then angled across the fracture an d into the tibia. Fluoroscopy was used to make sure that the wires were in appropriate position both on AP and lateral views and that both wires avoid of the joint. Once the wires were properly positioned on the drilling was completed and then 4.0 partially-threaded cancellous screws were inserted across the guidewires and there were tightened until the heads engaged the medial malleolus and compressed the fracture. Fluoroscopic imaging confirmed proper placement screws both on AP and lateral views and I the screw and to the joint. The guidewires were then removed and mary were used to close the 2 small incisions for the placement of the screws. Then a guidewire was placed in the posterior lateral aspect of the ankle in the Achilles tendon and the peroneal tendons. This wire was then manipulated until the wire was in alignment with the posterior malleolar fracture fragment. Proper position of the wire through the fragment was confirmed both on AP and lateral views. Small stab incision was made around the entry point of the wire and then blunt dissection taken along the wire to protect any underlying soft tissue structures to the posterior aspect of the tibia. The drilling was then performed and then a 4.0 fully threaded headless screw was inserted across the guidewire and was advanced until the most proximal threads engaged the fracture fragment and compression of the screw was palpated. Fluoroscopic imaging confirmed proper placement of the screw both on AP and lateral views. The small wound was irrigated and then closed with a single stainless staple. Then attention was directed to the right foot where a lazy S incision was made over the first and second tarsometatarsal joints. Incision was deepened down to the saphenous tissue careful to identify, avoid, and retract any neurovascular structures and cauterize any bleeding vessels. Blunt dissection was carried down to the deep fascia which was incised and protecting the extensor tendons to the great toe. Further dissection down the capsules performed and the capsule was incised to expose the articulations between the first and second metatarsals and their corresponding cuneiforms. A retractor was inserted to find the diastases between the base of the second metatarsal and the lateral aspect of the medial cuneiform. Any soft tissue was evacuated from the area of the reduction clamp was used to reduce the gap between these structures. Fluoroscopic imaging showed that the gap was reduced once the clamp was in place. An Arthrex Lisfranc plate was then positioned and adjusted so that all the screw holes were aligned with her appropriate anatomic landmarks. Temporary fixation was done through the first metatarsal and intermediate cuneiform holes. A locking screw was then placed through the hole the plate corresponding to the medial cuneiform. Then a nonlocking cortical screw was placed in the compression slot over the second metatarsal base. Drilling was done acentrically to allow for this and when the screw engaged the plate the compression was visible at the Lisfranc articulation. Or scopic imaging showed proper placement of the first 2 screws as well as reduction of the was rolly articulation. Locking screws were placed in the first metatarsal base and intermediate cuneiform holes. AP and lateral views of the fixation show that all screws were properly aligned and that there was anatomic reduction of the Lisfranc articulation. The wound is then irrigated with antibiotic saline. Deep closure was done with 0 Vicryl. Skin closure done with stainless steel sta ples. An Arthrex jumpstart dressing was applied over all incisions. A large bulky Hernandez compression dressing was applied to the right lower extremity. The tourniquet was released and capillary refill return to all digits on the right foot. A well molded, well-padded posterior mold/sugar tong splint was applied. The leg was held in neutral position as it dried. Anesthesia was then reversed and the patient was taken recovery vital signs stable
[2021-08-26 17:11] VITALS: PULSE 63; RESP 20
[2021-08-26 17:32] VITALS: BP 111/70
--- NOTE | 2021-08-27 07:42 | FL ---
Fluoroscopy INDICATION: Pain FINDINGS: Fluoroscopy time: 2 minutes 10 seconds. Images obtained: 5. IMPRESSIONS: 1. Documentation of fluoroscopy.
--- NOTE | 2021-08-27 08:45 | XR ---
Fluoroscopy INDICATION: Pain FINDINGS: Fluoroscopy time: 2 minutes 10 seconds. Images obtained: 4. IMPRESSIONS: 1. Documentation of fluoroscopy.
--- NOTE | 2021-08-27 09:45 | XR ---
Fluoroscopy INDICATION: Pain FINDINGS: Fluoroscopy time: 2 minutes 10 seconds. Images obtained: 2. IMPRESSIONS: 1. Documentation of fluoroscopy.
== END 2021-08-26 17:50 | disposition home or self-care (01) ==
LOC: OR 11:38
PROVIDERS: ATTEND Podiatrist
DX: S82.91XA Unspecified fracture of right lower leg, initial encounter for closed fracture (principal); S82.851A Displaced trimalleolar fracture of right lower leg, initial encounter for closed fracture; W17.89XA Other fall from one level to another, initial encounter; Y93.H3 Activity, building and construction; S93.324A Dislocation of tarsometatarsal joint of right foot, initial encounter; H40.9 Unspecified glaucoma; Z79.82 Long term (current) use of aspirin; Z79.899 Other long term (current) drug therapy; F17.200 Nicotine dependence, unspecified, uncomplicated
CPT/HCPCS: 64447; 64445; 76942; 73600; 73620; 27823; C1713; J2250; J1100; J0690; J2405; J2001; J3010; J1170; J2795; J2370; J0330; J2704